=== PATIENT | female | born 1990 | race Hispanic/Latino ===

== ENCOUNTER 2021-02-06 06:00 | Emergency (ER) | payer OTHER ==
[~2021-02-06] VITALS: Ht 157.5 cm; Wt 61.4 kg
[2021-02-06] MEDS ORDERED: TOPA50TA8 PO (06:33)
[2021-02-06] MEDS ORDERED: NS 500 ML IV ONE (07:20)
[2021-02-06] MEDS ORDERED: KETOROLAC 30 MG/ML 1ML VIAL IV ONE (07:20)
[2021-02-06] MEDS ORDERED: PANTOPRAZOLE 40MG VIAL (C9113 PER 1) IV ONE (07:20)
[2021-02-06] MEDS ORDERED: ONDANSETRON 4MG/2ML VIAL IV ONE (07:20)
[2021-02-06 08:03] LABS: BASO # 0.1 10^3/uL (0.0-0.2); BASO % 0.5 % (0.0-1.0); EOS # 0.1 10^3/uL (0.0-0.5); EOS % 1.1 % (0.0-3.0); HEMATOCRIT 36.8 % (36.0-47.0); HEMOGLOBIN 12.1 g/dl (12.0-15.5); LYMPH # 1.4 10^3/uL (1.5-5.0); LYMPH % 14.9 % (24.0-44.0); MEAN CORPUSCULAR HEMOGLOBIN 28.9 pg (27.0-33.0); MEAN CORPUSCULAR HGB CONC 32.9 g/dl (32.0-36.5); MONO # 0.8 10^3/uL (0.0-0.8); MONO % 8.6 % (2.0-8.0); NEUTROPHILS # 6.9 10^3/uL (1.5-8.5); NEUTROPHILS % 74.5 % (36.0-66.0); PLATELET COUNT, AUTOMATED 207 10^3/uL (150-450); RED BLOOD COUNT 4.18 10^6/uL (4.00-5.40); WHITE BLOOD COUNT 9.3 10^3/uL (4.0-10.0)
[2021-02-06 08:34] LABS: ALBUMIN 3.3 GM/DL (3.2-5.2); ALT/SGPT 26 U/L (12-78); BILIRUBIN,DIRECT 0.1 MG/DL (0.0-0.2); BILIRUBIN,TOTAL 0.4 MG/DL (0.2-1.0); BLOOD UREA NITROGEN 12 MG/DL (7-18); CALCIUM LEVEL 8.3 MG/DL (8.5-10.1); CARBON DIOXIDE LEVEL 23 MEQ/L (21-32); CHLORIDE LEVEL 110 MEQ/L (98-107); CREATININE FOR GFR 0.56 MG/DL (0.55-1.30); ETHYL ALCOHOL (ETHANOL) < 0.003 % (0.000-0.010); GLOMERULAR FILTRATION RATE > 60.0 (>60); GLUCOSE, FASTING 80 MG/DL (70-100); LIPASE 57 U/L (73-393); POTASSIUM SERUM 4.2 MEQ/L (3.5-5.1); SODIUM LEVEL 141 MEQ/L (136-145); TOTAL PROTEIN 6.9 GM/DL (6.4-8.2)
[2021-02-06 08:36] LABS: HCG, SERUM QUALITATIVE NEGATIVE (NEGATIVE)
--- NOTE | 2021-02-06 09:06 | REP ---
INDICATION: epigastric pain. COMPARISON: None. TECHNIQUE: PA chest with two-view abdomen FINDINGS: Upright chest: Lungs are well inflated. There is no infiltrate, pleural effusion, atelectasis or mass the heart, mediastinal and hilar contours are normal. The aorta and airway are intact. The bony thorax shows no focal lesion in there is no subdiaphragmatic free air. Two view abdomen: Surgical clips and wyatt left upper quadrant from presumed prior gastric bypass. Scattered stool and gas in the colon without dilatation. Paucity of small bowel gas but without abnormal distention or air-fluid levels. No free air under the diaphragm. No visible mass. No abnormal calcifications over the renal fossa, expected course of the ureters or in the deep pelvis. Visualized bones of the spine, lower ribs, pelvis and hips were grossly intact. IMPRESSION: 1. Postsurgical changes in the epigastric region and left upper quadrant with clips and staple lines suggesting prior gastric bypass. No evidence for subdiaphragmatic free air or sign of obstruction with scattered stool and gas throughout the colon. Small bowel loops not abnormally dilated but with a paucity of gas. No air-fluid levels. No abnormal calcifications in the bony structures unremarkable. 2. PA chest negative. <Electronically signed by Osmany Fuentes > 02/06/21 0902
[2021-02-06] MEDS ORDERED: GASTROGRAFIN SOLUTION 30ML (Q9963) As Ordered ONE (09:32)
[2021-02-06] MEDS: GASTROGRAFIN SOLUTION 30ML PO SCH ×2 (09:57→10:32)
[2021-02-06] MEDS ORDERED: ISOVUE-370 76% 100ML VIAL As Ordered ONE (11:00)
--- NOTE | 2021-02-06 12:53 | REP ---
INDICATION: epigastric pain, r/o pancreatitis, Hx gastric sleeve. COMPARISON: Abdominal series 02/06/2021 TECHNIQUE: Bolus 100 mL Isovue 370 scanning through the abdomen pelvis with coronal and sagittal reconstructions. Oral Gastrografin mixture per our protocol for bowel contrast was also provided. FINDINGS: CT abdomen: Lung base shows minimal dependent atelectasis deep sulci lower lobes, not visible radiographically. No effusion or infiltrate. Heart not enlarged. No pericardial thickening or effusion clips and wyatt from prior gastric bypass noted. Proximal small bowel loops of fluid-filled or contrast fluid but not abnormally dilated no wall thickening or mesenteric edema/fluid. No hepatomegaly with the liver having vertical diameter 17 cm. No focal hepatic mass, biliary dilatation nor adjacent ascites. I see no hepatic cysts. The gallbladder shows a least 1 a dependent calcification and a small amount of pericholecystic fluid anteriorly on axial images. It is not abnormally distended I see no definite calcifications in the common bile duct in the ketty hepatis or pancreatic head region. Maximum diameter 6.6 mm in the pancreatic head. No peripancreatic fluid collection or edema. The abdominal aorta without aneurysm or dissection. Adrenal glands grossly normal. Kidneys without hydronephrosis stone mass or cyst is show symmetric normal enhancement. No hydroureter or ureteral stone. No splenomegaly or focal splenic lesion. No abnormal distention of the gastric bypass components. No adjacent inflammatory changes. Moderate stool throughout the colon from cecum to distal left colon within the abdomen. See no perforation or free air. Small bowel loops the without mass or inflammatory change. Appendix is seen and grossly normal with contrast within. The bone windows show lumbar, lower thoracic vertebral levels, their posterior elements and ribs grossly intact. CT pelvis: Sacrum, SI joints, pelvis and hips are grossly unremarkable in their bony structure. Uterus anteverted somewhat prominent 11.4 x 4.8 by 5.6 cm. Appears to be soft tissue exophytic focus off the anterior margin of the fundus of the uterus abutting the bladder and a midline abdominal wall that may reflect a fibroid. Bladder is a well of filled and without stone, mass, wall thickening or layered debris within. No adnexal mass or pelvic free fluid. Abdominal and pelvic portions of the colon without colitis or diverticulitis. Small bowel loops in the pelvis are contrast filled and unremarkable to the terminal ileum and ileocecal valve. No ventral or inguinal hernia nor pathologic sized inguinal adenopathy. IMPRESSION: 1. Status post gastric bypass surgery with staple lines from gastric sleeve procedure as before but no mass or inflammatory change nor fluid collection adjacent. 2. Liver, spleen, adrenal glands, kidneys and aorta unremarkable. No pancreatic abnormality. 3. A single calcified gallstone in the dependent gallbladder and a small amount of pericholecystic fluid or edema anterior gallbladder wall without hydrops of the gallbladder, ascites, intra or extrahepatic biliary dilatation. 4. The colon and small bowel loops grossly intact. Appendix seen and normal. 5. Uterus anteverted slightly enlarged and there may be exophytic fibroid projecting off the fundus of the uterus with soft tissue density seen there abutting the bladder and anterior abdominal wall. No adnexal mass or pelvic free fluid no abdominal or pelvic lymphadenopathy. 6. Visualized bones grossly intact <Electronically signed by Osmany Fuentes > 02/06/21 [id number]
[2021-02-06 14:33] VITALS: BP 129/76
--- NOTE | 2021-02-08 13:46 | ED PDOC ---
Post-Departure Follow-Up dr ivan and ft joan blackmon faxed formal report of ct abd/p for fu Xin Carmona MD Feb 08, 2021 13:46
== END 2021-02-06 15:02 | disposition home or self-care (01) ==
LOC: M ED 06:00
DX: K80.20 Calculus of gallbladder without cholecystitis without obstruction (principal); Z98.84 Bariatric surgery status; K21.9 Gastro-esophageal reflux disease without esophagitis; G43.909 Migraine, unspecified, not intractable, without status migrainosus; Z79.899 Other long term (current) drug therapy
CPT/HCPCS: 74021; 74177; 80048; 80076; 82077; 83605; 83690; 84703; 85025; 93041; 96361; 96374; 96375; 99285; C9113; J1885; J2405; Q9967

== ENCOUNTER 2021-10-06 09:32 | Emergency (ER) | payer OTHER ==
[~2021-10-06] VITALS: Ht 157.5 cm; Wt 71.4 kg
[~2021-10-06 09:32] MED LIST: TOPA50TA8 PO
[2021-10-06] MEDS ORDERED: ONDANSETRON 4MG/2ML VIAL IV ONE (11:25)
[2021-10-06] MEDS ORDERED: NS 1,000 ML IV ONE (11:25)
[2021-10-06 12:02] LABS: BASO # 0.1 10^3/uL (0.0-0.2); EOS # 0.2 10^3/uL (0.0-0.5); EOS % 2.5 % (0.0-3.0); HEMATOCRIT 40.6 % (36.0-47.0); HEMOGLOBIN 13.2 g/dl (12.0-15.5); LYMPH # 1.4 10^3/uL (1.5-5.0); LYMPH % 23.2 % (24.0-44.0); MEAN CORPUSCULAR HEMOGLOBIN 28.6 pg (27.0-33.0); MEAN CORPUSCULAR HGB CONC 32.5 g/dl (32.0-36.5); MEAN CORPUSCULAR VOLUME 87.9 fl (80.0-96.0); MONO # 0.6 10^3/uL (0.0-0.8); MONO % 10.3 % (2.0-8.0); NEUTROPHILS # 3.7 10^3/uL (1.5-8.5); NEUTROPHILS % 62.7 % (36.0-66.0); PLATELET COUNT, AUTOMATED 268 10^3/uL (150-450); RED BLOOD COUNT 4.62 10^6/uL (4.00-5.40)
[2021-10-06] MEDS ORDERED: KETOROLAC 30 MG/ML 1ML VIAL IV ONE (12:05)
[2021-10-06 12:20] LABS: APPEARANCE, URINE HAZY (CLEAR); BACTERIA, URINE AUTO NEGATIVE (NEGATIVE); BILIRUBIN, URINE AUTO NEGATIVE (NEGATIVE); BLOOD, URINE BLOOD NEGATIVE (NEGATIVE); COLOR, URINE YELLOW (YELLOW); GLUCOSE, URINE (UA) AUTO NEGATIVE (NEGATIVE); KETONE, URINE AUTO NEGATIVE (NEGATIVE); LEUKOCYTE ESTERASE, URINE AUTO NEGATIVE (NEGATIVE); MUCUS, URINE SMALL (NEGATIVE); NITRITE, URINE AUTO NEGATIVE (NEGATIVE); PROTEIN, URINE AUTO NEGATIVE (NEGATIVE); RBC, URINE AUTO 1 /HPF (0-3); SPECIFIC GRAVITY URINE AUTO 1.014 (1.002-1.035); SQUAMOUS EPITHELIAL CELL UR AU 9 /HPF (0-6); UROBILINOGEN, URINE AUTO 0.2 mg/dL (0.0-2.0); WBC, URINE AUTO 0 /HPF (0-3)
[2021-10-06 12:32] LABS: ALBUMIN 3.7 GM/DL (3.2-5.2); ALT/SGPT 40 U/L (12-78); BILIRUBIN,DIRECT 0.2 MG/DL (0.0-0.2); BILIRUBIN,TOTAL 0.8 MG/DL (0.2-1.0); BLOOD UREA NITROGEN 11 MG/DL (7-18); CALCIUM LEVEL 8.9 MG/DL (8.5-10.1); CARBON DIOXIDE LEVEL 32 MEQ/L (21-32); CHLORIDE LEVEL 106 MEQ/L (98-107); CREATININE FOR GFR 0.64 MG/DL (0.55-1.30); GLOMERULAR FILTRATION RATE > 60.0 (>60); GLUCOSE, FASTING 91 MG/DL (70-100); SODIUM LEVEL 141 MEQ/L (136-145); TOTAL PROTEIN 7.4 GM/DL (6.4-8.2)
[2021-10-06] MEDS ORDERED: KETO10TAB PO (14:05)
[2021-10-06 14:28] VITALS: BP 126/62
== END 2021-10-06 14:38 | disposition home or self-care (01) ==
LOC: M ED 09:32
DX: N83.292 Other ovarian cyst, left side (principal); G43.909 Migraine, unspecified, not intractable, without status migrainosus; K21.9 Gastro-esophageal reflux disease without esophagitis; K58.9 Irritable bowel syndrome, unspecified; F41.9 Anxiety disorder, unspecified; Z98.84 Bariatric surgery status; Z88.8 Allergy status to other drugs, medicaments and biological substances
CPT/HCPCS: 76830; 76856; 80048; 80076; 81001; 84702; 85025; 93976; 96361; 96374; 96375; 99284; J1885; J2405

== ENCOUNTER 2021-10-26 23:22 | Emergency (ER) | payer OTHER ==
[~2021-10-26] VITALS: Ht 157.5 cm; Wt 71.4 kg
[~2021-10-26 23:22] MED LIST changes: +KETO10TAB PO
[2021-10-27 00:32] LABS: BASO # 0.1 10^3/uL (0.0-0.2); BASO % 0.9 % (0.0-1.0); EOS # 0.3 10^3/uL (0.0-0.5); EOS % 2.8 % (0.0-3.0); HEMATOCRIT 35.7 % (36.0-47.0); LYMPH # 1.9 10^3/uL (1.5-5.0); LYMPH % 19.3 % (24.0-44.0); MEAN CORPUSCULAR HEMOGLOBIN 29.1 pg (27.0-33.0); MEAN CORPUSCULAR HGB CONC 33.6 g/dl (32.0-36.5); MEAN CORPUSCULAR VOLUME 86.7 fl (80.0-96.0); MONO # 1.1 10^3/uL (0.0-0.8); MONO % 10.9 % (2.0-8.0); NEUTROPHILS # 6.6 10^3/uL (1.5-8.5); NEUTROPHILS % 65.8 % (36.0-66.0); PLATELET COUNT, AUTOMATED 229 10^3/uL (150-450); RED BLOOD COUNT 4.12 10^6/uL (4.00-5.40)
[2021-10-27] MEDS ORDERED: ONDANSETRON 4MG/2ML VIAL IV ONE (01:00)
[2021-10-27] MEDS ORDERED: NS 1,000 ML IV ONE (01:00)
[2021-10-27 01:05] LABS: ALBUMIN 3.8 GM/DL (3.2-5.2); ALT/SGPT 43 U/L (12-78); BILIRUBIN,DIRECT 0.2 MG/DL (0.0-0.2); BILIRUBIN,TOTAL 0.9 MG/DL (0.2-1.0); BLOOD UREA NITROGEN 14 MG/DL (7-18); CALCIUM LEVEL 8.9 MG/DL (8.5-10.1); CARBON DIOXIDE LEVEL 28 MEQ/L (21-32); CHLORIDE LEVEL 107 MEQ/L (98-107); CREATININE FOR GFR 0.64 MG/DL (0.55-1.30); GLOMERULAR FILTRATION RATE > 60.0 (>60); GLUCOSE, FASTING 93 MG/DL (70-100); HCG, SERUM QUANTITATIVE 20 MIU/ML; LIPASE 100 U/L (73-393); POTASSIUM SERUM 3.7 MEQ/L (3.5-5.1); SODIUM LEVEL 140 MEQ/L (136-145); TOTAL PROTEIN 7.1 GM/DL (6.4-8.2)
[2021-10-27] MEDS ORDERED: ACETAMINOPHEN 325 MG TAB PO ONE (02:30)
[2021-10-27] MEDS ORDERED: PIPERACILLIN/TAZOBACTAM SOD 3.375 GM in D5W MINI-BAG PLUS 50 ML IV ONE (02:40)
[2021-10-27] MEDS ORDERED: MORPHINE 2 MG/ML 1ML VIAL IV ONE (02:45)
[2021-10-27] MEDS ORDERED: diphenhydrAMINE 50MG/ML VIAL (J1200) As Ordered ONE (03:43)
[2021-10-27] MEDS ORDERED: diphenhydrAMINE 50MG/ML VIAL (J1200) IV STA (03:52)
[2021-10-27 03:56] VITALS: BP 127/79
[2021-10-27 05:01] LABS: RSV AMPLIFICATION NEGATIVE (NEGATIVE)
== END 2021-10-27 05:11 | disposition home or self-care (01) ==
LOC: M ED 23:22
DX: K81.0 Acute cholecystitis (principal); Z98.84 Bariatric surgery status; Z88.8 Allergy status to other drugs, medicaments and biological substances
CPT/HCPCS: 76705; 80048; 80076; 81001; 83690; 84702; 85025; 86850; 86900; 86901; 87631; 96361; 96365; 96375; 99284; J1200; J2270; J2405; J2543

== ENCOUNTER 2022-01-17 09:38 | Emergency (ER) | payer OTHER ==
[~2022-01-17] VITALS: Ht 157.5 cm; Wt 78.0 kg
[2022-01-17 10:43] LABS: BASO # 0.1 10^3/uL (0.0-0.2); BASO % 0.5 % (0.0-1.0); EOS # 0.2 10^3/uL (0.0-0.5); EOS % 1.6 % (0.0-3.0); HEMATOCRIT 35.8 % (36.0-47.0); HEMOGLOBIN 11.9 g/dl (12.0-15.5); LYMPH # 1.5 10^3/uL (1.5-5.0); LYMPH % 16.7 % (24.0-44.0); MEAN CORPUSCULAR HEMOGLOBIN 28.3 pg (27.0-33.0); MEAN CORPUSCULAR HGB CONC 33.2 g/dl (32.0-36.5); MONO # 0.9 10^3/uL (0.0-0.8); MONO % 9.5 % (2.0-8.0); NEUTROPHILS # 6.5 10^3/uL (1.5-8.5); PLATELET COUNT, AUTOMATED 224 10^3/uL (150-450); RED BLOOD COUNT 4.21 10^6/uL (4.00-5.40); WHITE BLOOD COUNT 9.2 10^3/uL (4.0-10.0)
[2022-01-17 11:56] VITALS: BP 105/62
== END 2022-01-17 11:59 | disposition home or self-care (01) ==
LOC: M ED 09:38
DX: O20.9 Hemorrhage in early pregnancy, unspecified (principal); Z3A.11 11 weeks gestation of pregnancy; D57.3 Sickle-cell trait; O99.011 Anemia complicating pregnancy, first trimester; O34.11 Maternal care for benign tumor of corpus uteri, first trimester; O99.841 Bariatric surgery status complicating pregnancy, first trimester; Z88.8 Allergy status to other drugs, medicaments and biological substances

== ENCOUNTER 2022-05-06 11:07 | Outpatient (CLI) | payer OTHER ==
[~2022-05-06] VITALS: Ht 157.5 cm; Wt 83.0 kg
[2022-05-06 11:44] VITALS: BP 89/46
[2022-05-06 11:45] VITALS: BP 83/47
[2022-05-06 11:46] VITALS: BP 118/67
[2022-05-06 12:26] VITALS: BP 102/63
== END 2022-05-06 12:28 | disposition home or self-care (01) ==
LOC: M LDO 11:07
PROVIDERS: ATTEND Advanced Practice Midwife
DX: S30.0XXA Contusion of lower back and pelvis, initial encounter (principal); O9A.212 Injury, poisoning and certain other consequences of external causes complicating pregnancy, second trimester; W10.8XXA Fall (on) (from) other stairs and steps, initial encounter; Y92.009 Unspecified place in unspecified non-institutional (private) residence as the place of occurrence of the external cause; Z3A.26 26 weeks gestation of pregnancy; O26.892 Other specified pregnancy related conditions, second trimester; R51.9 Headache, unspecified; Z88.0 Allergy status to penicillin; Z88.8 Allergy status to other drugs, medicaments and biological substances; O34.219 Maternal care for unspecified type scar from previous cesarean delivery; Z79.899 Other long term (current) drug therapy
CPT/HCPCS: 59025; 76815; G0463

== ENCOUNTER 2022-07-20 16:31 | Outpatient (CLI) | payer OTHER ==
[~2022-07-20] VITALS: Ht 157.5 cm; Wt 87.0 kg
[2022-07-20 16:48] VITALS: BP 111/67
[2022-07-20] MEDS ORDERED: PRENTAB9 PO (16:57)
[2022-07-20] MEDS ORDERED: MIRA3350 PO (16:57)
[2022-07-20] MEDS ORDERED: DOCU100C16 PO (16:57)
[2022-07-20] MEDS ORDERED: HOME MED LIST COMPLETE! XX SCH (17:00)
[2022-07-20] MEDS ORDERED: GABAPENTIN 300 MG CAP PO ONE (17:20)
[2022-07-20] MEDS ORDERED: CYCLOBENZAPRINE 10MG TABLET PO ONE (17:20)
[2022-07-20 17:37] LABS: APPEARANCE, URINE MANUAL CLEAR (CLEAR); COLOR, URINE MANUAL YELLOW (YELLOW)
[2022-07-20 17:38] LABS: BILIRUBIN, URINE MANUAL NEGATIVE (NEGATIVE); BLOOD URINE MANUAL NEGATIVE (NEGATIVE); GLUCOSE, URINE (UA) MANUAL NEGATIVE (NEGATIVE); KETONE, URINE MANUAL 1+ mg/dL (NEGATIVE); LEUKOCYTE ESTERASE, URINE MAN NEGATIVE (NEGATIVE); NITRITE, URINE MANUAL NEGATIVE (NEGATIVE); PROTEIN, URINE MANUAL NEGATIVE (NEGATIVE); SPECIFIC GRAVITY,URINE MANUAL 1.005 (1.002-1.035); UROBILINOGEN, URINE MANUAL NORMAL (NORMAL)
== END 2022-07-20 19:18 | disposition home or self-care (01) ==
LOC: M LDO 16:31
PROVIDERS: ATTEND Obstetrics & Gynecology
DX: O26.893 Other specified pregnancy related conditions, third trimester (principal); M25.552 Pain in left hip; Z3A.37 37 weeks gestation of pregnancy
CPT/HCPCS: 59025; 81002; G0378; G0463

== ENCOUNTER 2022-07-22 10:03 | Inpatient (IN) | payer OTHER ==
[~2022-07-22] VITALS: Ht 157.5 cm; Wt 87.7 kg
[~2022-07-22 10:03] MED LIST changes: +DOCU100C16 PO; +MIRA3350 PO; +PRENTAB9 PO
[2022-07-22 10:19] VITALS: BP 124/58
[2022-07-22] MEDS ORDERED: RIBO400T PO (10:22)
[2022-07-22] MEDS ORDERED: GNP250TA9 PO (10:22)
[2022-07-22] MEDS ORDERED: HOME MED LIST COMPLETE! XX SCH (10:25)
[2022-07-22] MEDS ORDERED: METHYLERGONOVINE MALEATE 0.2 MG/ML VIAL (J2210) IM PRN (10:40)
[2022-07-22] MEDS ORDERED: OXYTOCIN DRIP 30 UNITS in IV 1 EA IV PRN ×4 (10:40)
[2022-07-22] MEDS ORDERED: BUPIVACAINE HCL 0.25% 10ML VIAL SC ONE (10:40)
[2022-07-22] MEDS ORDERED: BICITRA 30ML SOLN UDC PO ONE (10:40)
[2022-07-22] MEDS ORDERED: TRANEXAMIC ACID INJection 1,000 MG in NS 100 ML IV PRN (10:40)
[2022-07-22] MEDS ORDERED: LACTATED RINGER'S 1000 ML IV STA (10:40)
[2022-07-22] MEDS ORDERED: CLINDAMYCIN 900 MG in IV 1 EA IV ONE (11:00)
[2022-07-22] MEDS ORDERED: GENTAMICIN 400 MG in D5W 100 ML IV ONE (11:00)
[2022-07-22 11:24] LABS: HEMATOCRIT 35.3 % (36.0-47.0); HEMOGLOBIN 11.5 g/dl (12.0-15.5); MEAN CORPUSCULAR HEMOGLOBIN 26.9 pg (27.0-33.0); MEAN CORPUSCULAR HGB CONC 32.6 g/dl (32.0-36.5); MEAN CORPUSCULAR VOLUME 82.5 fl (80.0-96.0); PLATELET COUNT, AUTOMATED 212 10^3/uL (150-450); RED BLOOD COUNT 4.28 10^6/uL (4.00-5.40); WHITE BLOOD COUNT 11.8 10^3/uL (4.0-10.0)
[2022-07-22] MEDS: LR 1,000 ML IV SCH ×4 (12:00→22:35)
[2022-07-22] MEDS ORDERED: MORPHINE PRES-FREE INJ 10 MG/10 ML VIAL As Ordered ONE (12:16)
[2022-07-22] MEDS ORDERED: KETOROLAC 60MG 2ML VIAL As Ordered ONE (12:19)
[2022-07-22] MEDS ORDERED: ONDANSETRON 4MG 2ML VIAL As Ordered ONE (12:19)
[2022-07-22] MEDS ORDERED: ACETAMINOPHEN 1000MG 100ML IV BAG As Ordered ONE (12:19)
[2022-07-22] MEDS ORDERED: OXYTOCIN 30UNITS IN 0.9% NaCl 500ML IV BAG As Ordered ONE ×2 (12:19→13:22)
[2022-07-22 13:20] LABS: CORD GAS ABE A -5.8; CORD GAS HCO3 A 22.6 MEQ/L; CORD GAS O2 SAT A 43.1 %; CORD GAS PCO2 A 56.2 mmHg; CORD GAS PH A 7.222 UNITS; CORD GAS PO2 A 21.9 mmHg; CORD GAS SBC A 18.6 MEQ/L; CORD GAS TCO2 A 24.3 MEQ/L
[2022-07-22] MEDS ORDERED: fentaNYL 100 MCG/2 ML INJECTION As Ordered ONE (13:20)
[2022-07-22 13:22] LABS: CORD GAS HCO3 V 21.9 MEQ/L; CORD GAS O2 SAT V 77.6 %; CORD GAS PCO2 V 42.7 mmHg; CORD GAS PH V 7.327 UNITS; CORD GAS PO2 V 33.9 mmHg; CORD GAS SBC V 20.7 MEQ/L; CORD GAS TCO2 V 23.2 MEQ/L
[2022-07-22] MEDS ORDERED: oxyCODONE 5MG TAB PO PRN (14:35)
[2022-07-22] MEDS ORDERED: DOCUSATE SODIUM 100MG CAPSULE PO PRN (14:35)
[2022-07-22] MEDS ORDERED: OXYTOCIN DRIP 30 UNITS in IV 1 EA IV SCH (14:35)
[2022-07-22] MEDS ORDERED: RHOGAM 300MCG (1500IU) INJ IM SCH (14:35)
[2022-07-22] MEDS ORDERED: ONDANSETRON 4MG 2ML VIAL IV PRN (14:35)
[2022-07-22] MEDS: ACETAMINOPHEN 500 MG TAB PO SCH ×2 (14:35→21:09)
[2022-07-22] MEDS ORDERED: PROMETHAZINE 25 MG TAB PO PRN (14:35)
[2022-07-22] MEDS ORDERED: METHYLERGONOVINE MALEATE 0.2 MG TAB ONE (15:37)
[2022-07-22 16:45] VITALS: BP 95/51
[2022-07-22 17:15] VITALS: BP 94/60
[2022-07-22] MEDS: KETOROLAC 30 MG/ML 1ML VIAL IV SCH (18:13)
[2022-07-22 18:15] VITALS: BP 103/60
[2022-07-22] MEDS: METHYLERGONOVINE MALEATE 0.2 MG TAB PO SCH (19:32)
[2022-07-22 19:40] VITALS: BP 97/64
[2022-07-23] VITALS (9 sets, daily range): BP systolic 86–107; BP diastolic 52–74
[2022-07-23] MEDS: KETOROLAC 30 MG/ML 1ML VIAL IV SCH ×2 (01:36→07:19)
[2022-07-23] MEDS: METHYLERGONOVINE MALEATE 0.2 MG TAB PO SCH ×2 (01:37→08:47)
[2022-07-23] MEDS: ACETAMINOPHEN 500 MG TAB PO SCH ×4 (03:00→20:09)
[2022-07-23] MEDS: LR 1,000 ML IV SCH ×3 (03:01→14:35)
[2022-07-23 04:16] LABS: HEMATOCRIT 30.3 % (36.0-47.0); HEMOGLOBIN 9.6 g/dl (12.0-15.5); MEAN CORPUSCULAR HEMOGLOBIN 26.4 pg (27.0-33.0); MEAN CORPUSCULAR HGB CONC 31.7 g/dl (32.0-36.5); MEAN CORPUSCULAR VOLUME 83.5 fl (80.0-96.0); PLATELET COUNT, AUTOMATED 182 10^3/uL (150-450); RED BLOOD COUNT 3.63 10^6/uL (4.00-5.40); WHITE BLOOD COUNT 12.1 10^3/uL (4.0-10.0)
[2022-07-23 07:03] LABS: HEMATOCRIT 29.6 % (36.0-47.0); HEMOGLOBIN 9.5 g/dl (12.0-15.5); MEAN CORPUSCULAR HEMOGLOBIN 26.9 pg (27.0-33.0); MEAN CORPUSCULAR HGB CONC 32.1 g/dl (32.0-36.5); MEAN CORPUSCULAR VOLUME 83.9 fl (80.0-96.0); PLATELET COUNT, AUTOMATED 193 10^3/uL (150-450); RED BLOOD COUNT 3.53 10^6/uL (4.00-5.40); WHITE BLOOD COUNT 12.1 10^3/uL (4.0-10.0)
[2022-07-23] MEDS: PRENATAL VITAMINS CHEWABLE TABLET PO SCH (08:45)
[2022-07-23] MEDS: oxyCODONE 5MG TAB PO PRN (14:12)
[2022-07-23] MEDS: IBUPROFEN 800 MG TAB PO SCH ×2 (14:13→23:08)
[2022-07-23] MEDS: SIMETHICONE 80MG CHEW TAB PO PRN ×2 (19:05→23:08)
[2022-07-24 02:00] VITALS: BP 94/54
[2022-07-24] MEDS: ACETAMINOPHEN 500 MG TAB PO SCH ×2 (02:38→08:35)
[2022-07-24 06:00] VITALS: BP 98/57
[2022-07-24] MEDS: IBUPROFEN 800 MG TAB PO SCH ×2 (06:28→14:47)
[2022-07-24] MEDS: PRENATAL VITAMINS CHEWABLE TABLET PO SCH (08:35)
[2022-07-24] MEDS: SIMETHICONE 80MG CHEW TAB PO PRN (08:48)
[2022-07-24] MEDS ORDERED: MEASLES,MUMPS,RUBELLA VACCINE INJ (MMR-II) SC.IMMUN ONE (09:00)
[2022-07-24] MEDS ORDERED: INFLUENZA QUADRIVALENT PF VACCINE 0.5ML SYRINGE IM.IMMUN ONE (09:00)
[2022-07-24 10:00] VITALS: BP 97/64
[2022-07-24] MEDS: oxyCODONE 5MG TAB PO PRN (12:01)
== END 2022-07-24 16:15 | disposition home or self-care (01) | DRG 773 ==
LOC: M LDO 10:03 → M LDI 10:40 → M OBS 16:31
PROVIDERS: ADMIT Obstetrics & Gynecology; ATTEND Obstetrics & Gynecology
PROC: 10D00Z1 Extraction of Products of Conception, Low, Open Approach (ICD-10-PCS; principal; 2022-07-22 11:30)
DX: O34.211 Maternal care for low transverse scar from previous cesarean delivery (principal); Z37.0 Single live birth; Z3A.37 37 weeks gestation of pregnancy

== ENCOUNTER 2022-09-21 11:33 | Observation (INO) | payer OTHER ==
[~2022-09-21] VITALS: Ht 157.5 cm; Wt 75.0 kg
[~2022-09-21 11:33] MED LIST changes: +GNP250TA9 PO; +RIBO400T PO
[2022-09-21 12:49] LABS: BASO # 0.1 10^3/uL (0.0-0.2); BASO % 0.8 % (0.0-1.0); EOS # 0.2 10^3/uL (0.0-0.5); EOS % 2.2 % (0.0-3.0); HEMATOCRIT 35.9 % (36.0-47.0); HEMOGLOBIN 11.6 g/dl (12.0-15.5); LYMPH # 1.7 10^3/uL (1.5-5.0); LYMPH % 15.8 % (24.0-44.0); MEAN CORPUSCULAR HEMOGLOBIN 25.6 pg (27.0-33.0); MEAN CORPUSCULAR HGB CONC 32.3 g/dl (32.0-36.5); MEAN CORPUSCULAR VOLUME 79.2 fl (80.0-96.0); MONO # 1.1 10^3/uL (0.0-0.8); NEUTROPHILS # 7.4 10^3/uL (1.5-8.5); NEUTROPHILS % 70.7 % (36.0-66.0); PLATELET COUNT, AUTOMATED 310 10^3/uL (150-450); RED BLOOD COUNT 4.53 10^6/uL (4.00-5.40); WHITE BLOOD COUNT 10.5 10^3/uL (4.0-10.0)
[2022-09-21] MEDS ORDERED: MORPHINE 4 MG/ML 1ML VIAL IV ONE (12:55)
[2022-09-21] MEDS ORDERED: ONDANSETRON 4MG 2ML VIAL IV ONE (12:55)
[2022-09-21] MEDS: NS 1,000 ML IV SCH ×3 (13:07→21:05)
[2022-09-21 13:32] LABS: LIPASE 23 U/L (12-53)
[2022-09-21 13:33] LABS: CPK CREATINE PHOSPHOKINASE 57 U/L (34-145)
[2022-09-21 13:46] LABS: HCG, SERUM QUALITATIVE NEGATIVE (NEGATIVE)
[2022-09-21 13:59] LABS: ALBUMIN 3.8 G/DL (3.2-5.2); ALKALINE PHOSPHATASE 120 U/L (46-116); ALT/SGPT 213 U/L (7.0-40); AST/SGOT 33 U/L (<34); BILIRUBIN,DIRECT 0.4 MG/DL (<0.4); BILIRUBIN,TOTAL 1.1 MG/DL (0.3-1.2); BLOOD UREA NITROGEN 9 MG/DL (9-23); CALCIUM LEVEL 9.6 MG/DL (8.5-10.1); CARBON DIOXIDE LEVEL 25 MMOL/L (20-31); CHLORIDE LEVEL 104 MMOL/L (98-107); CK-MB VALUE MASS < 1.0 NG/ML (<3.6); CREATININE FOR GFR 0.54 MG/DL (0.55-1.30); GLOMERULAR FILTRATION RATE > 60.0 (>60); GLUCOSE, FASTING 78 MG/DL (60-100); MB/CK RELATIVE INDEX 1.75 (< OR =4); POTASSIUM SERUM 3.3 MMOL/L (3.5-5.1); SODIUM LEVEL 141 MMOL/L (136-145); TOTAL PROTEIN 7.2 G/DL (5.7-8.2)
[2022-09-21] MEDS ORDERED: POTASSIUM CHLORIDE 10MEQ SR TABLET PO ONE (14:15)
[2022-09-21] MEDS ORDERED: ISOVUE-370 76% 100ML VIAL As Ordered ONE (14:54)
[2022-09-21 16:01] LABS: CK-MB VALUE MASS < 1.0 NG/ML (<3.6)
[2022-09-21 16:02] LABS: CPK CREATINE PHOSPHOKINASE 50 U/L (34-145)
[2022-09-21] MEDS ORDERED: LevoFLOXacin IV 750 MG in IV 1 EA IV ONE (16:30)
[2022-09-21] MEDS ORDERED: ACETAMINOPHEN TAB 650MG DOSE (2X325MG) PO ONE (20:30)
[2022-09-21 20:51] LABS: ALBUMIN 3.4 G/DL (3.2-5.2); ALKALINE PHOSPHATASE 107 U/L (46-116); ALT/SGPT 190 U/L (7.0-40); AST/SGOT 32 U/L (<34); BILIRUBIN,TOTAL 0.8 MG/DL (0.3-1.2); BLOOD UREA NITROGEN 8 MG/DL (9-23); CALCIUM LEVEL 8.3 MG/DL (8.5-10.1); CARBON DIOXIDE LEVEL 27 MMOL/L (20-31); CHLORIDE LEVEL 105 MMOL/L (98-107); GLOMERULAR FILTRATION RATE > 60.0 (>60); GLUCOSE, FASTING 79 MG/DL (60-100); POTASSIUM SERUM 3.9 MMOL/L (3.5-5.1); SODIUM LEVEL 139 MMOL/L (136-145); TOTAL PROTEIN 6.4 G/DL (5.7-8.2)
[2022-09-21] MEDS ORDERED: traMADol 50 MG TAB PO PRN (21:05)
[2022-09-21] MEDS ORDERED: ULTRACET TAB PO PRN (21:05)
[2022-09-21] MEDS ORDERED: ONDANSETRON 4MG TAB PO PRN (21:05)
[2022-09-21] MEDS ORDERED: ONDANSETRON 4MG 2ML VIAL IV PRN (21:05)
[2022-09-21] MEDS ORDERED: IBUP1TAB7 PO (21:13)
[2022-09-21] MEDS ORDERED: SIME1CAP PO (21:13)
[2022-09-21] MEDS ORDERED: PNV,1TAB3 PO (21:13)
[2022-09-21] MEDS ORDERED: NORE0.353 PO (21:13)
[2022-09-21] MEDS ORDERED: HOME MED LIST COMPLETE! XX SCH (21:15)
[2022-09-21] MEDS: KETOROLAC 30 MG/ML 1ML VIAL IV SCH (21:23)
[2022-09-21 22:09] LABS: RSV AMPLIFICATION NEGATIVE (NEGATIVE)
[2022-09-21 23:01] VITALS: BP 139/89
[2022-09-22 02:05] VITALS: BP 100/66
[2022-09-22] MEDS: KETOROLAC 30 MG/ML 1ML VIAL IV SCH ×2 (04:37→09:10)
[2022-09-22] MEDS: NS 1,000 ML IV SCH (05:45)
[2022-09-22 06:36] VITALS: BP 123/74
[2022-09-22 07:48] LABS: HEMOGLOBIN 11.2 g/dl (12.0-15.5); MEAN CORPUSCULAR HEMOGLOBIN 24.9 pg (27.0-33.0); MEAN CORPUSCULAR HGB CONC 31.1 g/dl (32.0-36.5); MEAN CORPUSCULAR VOLUME 80.2 fl (80.0-96.0); PLATELET COUNT, AUTOMATED 266 10^3/uL (150-450); RED BLOOD COUNT 4.49 10^6/uL (4.00-5.40)
[2022-09-22 08:28] LABS: ALBUMIN 3.4 G/DL (3.2-5.2); ALKALINE PHOSPHATASE 112 U/L (46-116); ALT/SGPT 164 U/L (7.0-40); AST/SGOT 25 U/L (<34); BLOOD UREA NITROGEN 8 MG/DL (9-23); CALCIUM LEVEL 8.7 MG/DL (8.5-10.1); CARBON DIOXIDE LEVEL 25 MMOL/L (20-31); CHLORIDE LEVEL 106 MMOL/L (98-107); CREATININE FOR GFR 0.54 MG/DL (0.55-1.30); GLOMERULAR FILTRATION RATE > 60.0 (>60); GLUCOSE, FASTING 102 MG/DL (60-100); POTASSIUM SERUM 3.9 MMOL/L (3.5-5.1); SODIUM LEVEL 140 MMOL/L (136-145); TOTAL PROTEIN 6.4 G/DL (5.7-8.2)
[2022-09-22] MEDS ORDERED: LEVO1TAB39 PO (08:53)
[2022-09-22] MEDS ORDERED: PANTOPRAZOLE 40MG VIAL IV SCH (09:00)
[2022-09-22] MEDS ORDERED: LevoFLOXacin IV 500 MG in IV 1 EA IV SCH (18:00)
== END 2022-09-22 12:45 | disposition home or self-care (01) ==
LOC: M ED 11:33 → EDBD 11:33 → INTOOBSV 21:02 → M ED INP 21:02 → ENRESERV 21:49 → M MS5PR 22:50
PROVIDERS: ADMIT Surgery; ATTEND Surgery
DX: K81.0 Acute cholecystitis (principal); Z79.899 Other long term (current) drug therapy; Z88.0 Allergy status to penicillin; Z88.8 Allergy status to other drugs, medicaments and biological substances
CPT/HCPCS: 36415; 71275; 74177; 74181; 76705; 80048; 80053; 80076; 81001; 82550; 82553; 83690; 84484; 84703; 85025; 85027; 85379; 87631; 93005; 96361; 96365; 96375; 96376; 99285; C9113; J1885; J1956; J2270; J2405

== ENCOUNTER 2022-09-28 17:36 | Emergency (ER) | payer OTHER ==
[~2022-09-28] VITALS: Ht 157.5 cm; Wt 77.2 kg
[~2022-09-28 17:36] MED LIST changes: +IBUP1TAB7 PO; +LEVO1TAB39 PO; +NORE0.353 PO; +PNV,1TAB3 PO; +SIME1CAP PO
[2022-09-28] MEDS ORDERED: NS 1,000 ML IV ONE (18:05)
[2022-09-28] MEDS ORDERED: PANTOPRAZOLE 40MG VIAL IV ONE (18:05)
[2022-09-28] MEDS ORDERED: PROMETHAZINE 25MG/ML 1ML VIAL IV ONE (18:05)
[2022-09-28] MEDS ORDERED: MORPHINE 4 MG/ML 1ML VIAL IV ONE (18:05)
[2022-09-28 18:28] LABS: BASO # 0.1 10^3/uL (0.0-0.2); EOS # 0.2 10^3/uL (0.0-0.5); EOS % 2.5 % (0.0-3.0); HEMATOCRIT 40.6 % (36.0-47.0); HEMOGLOBIN 12.7 g/dl (12.0-15.5); LYMPH # 1.3 10^3/uL (1.5-5.0); LYMPH % 13.3 % (24.0-44.0); MEAN CORPUSCULAR HEMOGLOBIN 24.8 pg (27.0-33.0); MEAN CORPUSCULAR HGB CONC 31.3 g/dl (32.0-36.5); MEAN CORPUSCULAR VOLUME 79.1 fl (80.0-96.0); MONO % 10.6 % (2.0-8.0); NEUTROPHILS % 72.3 % (36.0-66.0); PLATELET COUNT, AUTOMATED 339 10^3/uL (150-450); RED BLOOD COUNT 5.13 10^6/uL (4.00-5.40); WHITE BLOOD COUNT 9.7 10^3/uL (4.0-10.0)
[2022-09-28] MEDS ORDERED: ISOVUE-370 76% 100ML VIAL As Ordered ONE (18:40)
[2022-09-28 18:57] LABS: LIPASE 29 U/L (12-53)
[2022-09-28 18:58] LABS: CK-MB VALUE MASS < 1.0 NG/ML (<3.6)
[2022-09-28 19:01] LABS: CPK CREATINE PHOSPHOKINASE 71 U/L (34-145)
[2022-09-28 19:03] LABS: ALBUMIN 4.1 G/DL (3.2-5.2); ALKALINE PHOSPHATASE 163 U/L (46-116); ALT/SGPT 363 U/L (7.0-40); AST/SGOT 353 U/L (<34); BILIRUBIN,DIRECT 1.9 MG/DL (<0.4); BILIRUBIN,TOTAL 3.7 MG/DL (0.3-1.2); TOTAL PROTEIN 7.8 G/DL (5.7-8.2)
[2022-09-28 19:06] LABS: INR 1.08; PROTHROMBIN TIME 14.2 SECONDS (12.5-14.5)
[2022-09-28 19:15] LABS: HCG, SERUM QUANTITATIVE < 2.6 MIU/ML (<4.2)
[2022-09-28 19:24] LABS: RSV AMPLIFICATION NEGATIVE (NEGATIVE)
[2022-09-28 20:51] LABS: CK-MB VALUE MASS < 1.0 NG/ML (<3.6)
[2022-09-28 20:55] LABS: CPK CREATINE PHOSPHOKINASE 51 U/L (34-145); MB/CK RELATIVE INDEX 1.96 (< OR =4)
[2022-09-29 01:36] VITALS: BP 114/79
== END 2022-09-29 01:41 | disposition short-term general hospital (02) ==
LOC: M ED 17:36
DX: K80.70 Calculus of gallbladder and bile duct without cholecystitis without obstruction (principal); R74.01 Elevation of levels of liver transaminase levels; R18.8 Other ascites; J90 Pleural effusion, not elsewhere classified; K21.9 Gastro-esophageal reflux disease without esophagitis; K58.9 Irritable bowel syndrome, unspecified; Z87.442 Personal history of urinary calculi; Z98.84 Bariatric surgery status; Z79.899 Other long term (current) drug therapy; Z88.8 Allergy status to other drugs, medicaments and biological substances
CPT/HCPCS: 71046; 74177; 76705; 80047; 80076; 82550; 82553; 83605; 83690; 84484; 84702; 85025; 85610; 85730; 87631; 93005; 93041; 94760; 96361; 96374; 96375; 99285; C9113; J2270; J2550

== ENCOUNTER 2022-11-18 13:16 | Day surgery (SDC) | payer OTHER ==
[~2022-11-18] VITALS: Ht 157.5 cm; Wt 76.2 kg
[~2022-11-18 13:16] MED LIST changes: +CVS1CHW13 PO; +NS 1,000 ML IV ONE; +PREN1TAB18 PO
[2022-11-18] MEDS ORDERED: LR 1,000 ML IV SCH (13:55)
[2022-11-18] MEDS ORDERED: ISOVUE-300 61% 100ML VIAL As Ordered ONE (14:07)
[2022-11-18] MEDS ORDERED: propofoL 200 MG/20 ML VIAL As Ordered ONE (14:53)
[2022-11-18] MEDS ORDERED: ROCURONIUM BROMIDE 50MG/5ML VIAL As Ordered ONE (14:53)
[2022-11-18] MEDS ORDERED: LIDOCAINE 2% 100MG/5ML SDV (FOR ANES.) As Ordered ONE (14:53)
[2022-11-18] MEDS ORDERED: SUGAMMADEX SODIUM 500 MG/5 ML VIAL (BRIDION) As Ordered ONE (14:53)
[2022-11-18] MEDS ORDERED: ONDANSETRON 4MG 2ML VIAL As Ordered ONE (14:54)
[2022-11-18] MEDS ORDERED: MIDAZOLAM INJ 2MG/2ML VIAL As Ordered ONE (15:30)
[2022-11-18] MEDS ORDERED: fentaNYL 100 MCG/2 ML INJECTION As Ordered ONE (15:31)
[2022-11-18] MEDS ORDERED: LACRILUBE (AKWA TEARS) OPHTH OINT 3.5GM As Ordered ONE (16:09)
[2022-11-18] MEDS ORDERED: ACETAMINOPHEN 1000MG 100ML IV BAG As Ordered ONE (16:13)
[2022-11-18] MEDS ORDERED: ONDANSETRON 4MG 2ML VIAL IV PRN (16:35)
[2022-11-18] MEDS ORDERED: oxyCODONE 5MG TAB PO PRN (16:35)
[2022-11-18] MEDS ORDERED: HYDROMORPHONE HCL 0.5 MG/ 0.5 ML SYRINGE IV PRN (16:35)
[2022-11-18] MEDS ORDERED: fentaNYL 100 MCG/2 ML INJECTION IV PRN (16:35)
[2022-11-18 18:13] VITALS: BP 124/78
== END 2022-11-18 19:10 | disposition home or self-care (01) ==
LOC: M SDC 13:16
PROVIDERS: ATTEND Internal Medicine Gastroenterology
DX: T85.590A Other mechanical complication of bile duct prosthesis, initial encounter (principal); K80.50 Calculus of bile duct without cholangitis or cholecystitis without obstruction; Z46.59 Encounter for fitting and adjustment of other gastrointestinal appliance and device; R93.2 Abnormal findings on diagnostic imaging of liver and biliary tract; Z88.1 Allergy status to other antibiotic agents; Z88.8 Allergy status to other drugs, medicaments and biological substances; K58.8 Other irritable bowel syndrome; D57.3 Sickle-cell trait; Z79.899 Other long term (current) drug therapy; F41.9 Anxiety disorder, unspecified; Z98.84 Bariatric surgery status
CPT/HCPCS: 43262; 43264; 43275; 74330; 81025; C1889; J0131; J1100; J2250; J2405; J3010; Q9967

== ENCOUNTER 2023-03-23 07:16 | Day surgery (SDC) | payer OTHER ==
[~2023-03-23] VITALS: Ht 157.5 cm; Wt 76.7 kg
[~2023-03-23 07:16] MED LIST changes: +ACETAMINOPHEN *IV* 1,000 MG in IV 1 EA IV ONE; -NS 1,000 ML IV ONE; +TOPI-254 PO; +TOPI25TA10 PO
[2023-03-23] MEDS ORDERED: KETOROLAC 60MG 2ML VIAL As Ordered ONE (07:17)
[2023-03-23] MEDS ORDERED: LIDOCAINE 2% 100MG/5ML SDV (FOR ANES.) As Ordered ONE (07:17)
[2023-03-23] MEDS ORDERED: propofoL 200 MG/20 ML VIAL As Ordered ONE (07:17)
[2023-03-23] MEDS ORDERED: ONDANSETRON 4MG 2ML VIAL As Ordered ONE (07:17)
[2023-03-23] MEDS ORDERED: ACETAMINOPHEN 1000MG 100ML IV BAG As Ordered ONE (07:18)
[2023-03-23] MEDS ORDERED: fentaNYL 100 MCG/2 ML INJECTION As Ordered ONE (07:18)
[2023-03-23] MEDS ORDERED: dexmedeTOMIDine (4MCG/ML)200MCG/50ML BTL (PRECEDEX) As Ordered ONE (07:18)
[2023-03-23] MEDS ORDERED: MIDAZOLAM INJ 2MG/2ML VIAL As Ordered ONE (07:18)
[2023-03-23] MEDS ORDERED: LR 1,000 ML IV SCH ×2 (07:25→09:35)
[2023-03-23 07:56] LABS: HEMATOCRIT 38.7 % (36.0-47.0); HEMOGLOBIN 12.9 g/dl (12.0-15.5); MEAN CORPUSCULAR HEMOGLOBIN 27.2 pg (27.0-33.0); MEAN CORPUSCULAR HGB CONC 33.3 g/dl (32.0-36.5); MEAN CORPUSCULAR VOLUME 81.6 fl (80.0-96.0); PLATELET COUNT, AUTOMATED 249 10^3/uL (150-450); RED BLOOD COUNT 4.74 10^6/uL (4.00-5.40); WHITE BLOOD COUNT 7.5 10^3/uL (4.0-10.0)
[2023-03-23] MEDS ORDERED: SUGAMMADEX SODIUM 500 MG/5 ML VIAL (BRIDION) As Ordered ONE (08:07)
[2023-03-23] MEDS ORDERED: ROCURONIUM BROMIDE 50MG/5ML VIAL As Ordered ONE (08:07)
[2023-03-23] MEDS ORDERED: HYDROmorphone HCL 2MG/ML 1ML VIAL As Ordered ONE (08:28)
[2023-03-23] MEDS ORDERED: HYDROMORPHONE HCL 0.5 MG/ 0.5 ML SYRINGE IV PRN (09:35)
[2023-03-23] MEDS ORDERED: oxyCODONE 5MG TAB PO PRN (09:35)
[2023-03-23] MEDS ORDERED: fentaNYL 100 MCG/2 ML INJECTION IV PRN (09:35)
[2023-03-23] MEDS ORDERED: ONDANSETRON 4MG 2ML VIAL IV PRN (09:35)
[2023-03-23 12:30] VITALS: BP 132/84; TEMP 97.9; O2SAT 97
== END 2023-03-23 12:40 | disposition home or self-care (01) ==
LOC: M SDC 07:16
PROVIDERS: ATTEND Obstetrics & Gynecology
DX: N83.292 Other ovarian cyst, left side (principal); K66.0 Peritoneal adhesions (postprocedural) (postinfection); Z79.899 Other long term (current) drug therapy; Z88.1 Allergy status to other antibiotic agents; Z88.8 Allergy status to other drugs, medicaments and biological substances; Z98.84 Bariatric surgery status
CPT/HCPCS: 36415; 58662; 81025; 85027; 86850; 86900; 86901; 88305; J0131; J0665; J1100; J1170; J1885; J2250; J2405; J3010

== ENCOUNTER 2023-06-08 10:15 | Emergency (ER) | payer OTHER ==
[~2023-06-08] VITALS: Ht 157.5 cm; Wt 75.2 kg
[~2023-06-08 10:15] MED LIST changes: -ACETAMINOPHEN *IV* 1,000 MG in IV 1 EA IV ONE
[2023-06-08 15:14] VITALS: BP 115/71; TEMP 98; O2SAT 100
[2023-06-08 15:42] LABS: CHLAMYDIA DNA AMPLIFICATION NEGATIVE (NEGATIVE); GC DNA AMPLIFICATION NEGATIVE (NEGATIVE)
== END 2023-06-08 15:15 | disposition home or self-care (01) ==
LOC: M ED 10:15
DX: N93.9 Abnormal uterine and vaginal bleeding, unspecified (principal); Z88.1 Allergy status to other antibiotic agents; Z88.8 Allergy status to other drugs, medicaments and biological substances; Z79.899 Other long term (current) drug therapy; Z79.4 Long term (current) use of insulin